=== PATIENT | female | born 1990 | race Two or more races ===

== ENCOUNTER 2017-04-23 10:26 | Emergency (ER) | payer MEDICAID ==
[~2017-04-23] VITALS: Ht 149.9 cm; Wt 63.3 kg
[2017-04-23 10:37] VITALS: BP 148/93
== END 2017-04-23 11:49 | disposition home or self-care (01) ==
LOC: ER 10:26
DX: H66.91 Otitis media, unspecified, right ear (principal); J03.90 Acute tonsillitis, unspecified